=== PATIENT | female | born 1980 | race Hispanic/Latino ===

== ENCOUNTER 2019-05-16 05:18 | Inpatient (IN) ==
[2019-05-12 10:14] LABS: BASO# 0.02 X1000 (0.0-0.2); BASO% 0.3 % (0.0-0.8); EOS# 0.11 X1000 (0.0-0.7); EOS% 1.6 % (0.0-10.0); HEMATOCRIT 42.7 % (37.0-47.0); HEMOGLOBIN 14.8 g/dL (12.0-16.0); LYMPH# 2.41 X1000 (1.2-3.4); MCH 28.6 PG (27-31); MCHC 34.7 g/dL (33-37); MCV 82.4 FL (81-99); MONO# 0.49 X1000 (0.11-0.59); MONO% 6.9 % (1.7-9.3); NEUT# 4.05 X1000 (1.4-6.5); NEUT% 57.2 % (42.2-75.2); PLT 311 X1000 (130-400); RBC 5.18 XMIL (4.2-5.4); RDW 13.3 % (11.5-14.5); WBC 7.08 X1000 (4.8-10.8)
--- NOTE | 2019-05-12 10:25 | EKG Report ---
Test Performed on : 05/12/2019 09:40:21 AM Test Reason : PAT Blood Pressure : / mmHG Vent. Rate : 075 BPM Atrial Rate : 075 BPM P-R Int : 162 ms QRS Dur : 088 ms QT Int : 384 ms P-R-T Axes : 023 026 021 degrees QTc Int : 428 ms Normal sinus rhythm. Normal ECG No previous ECGs available Confirmed by Cate ANDERSON, David Leyva ([id number]) on 05/12/2019 5:06:37 PM
[2019-05-12 10:44] LABS: AGAP 15; BUN 9 mg/dL (8-22); CALCIUM 9.6 mg/dL (8.8-10.2); CHLORIDE 99 mmol/L (98-107); COSMO 285; CREATININE 0.5 mg/dL (0.5-0.9); ESTIMATED GFR > 60; GLUCOSE 331 mg/dL (70-104); POTASSIUM 4.1 mmol/L (3.5-5.1); SODIUM 137 mmol/L (136-145); TCO2 23 mmol/L (25-35)
[2019-05-16] MEDS ORDERED: KEFZOL 1 GM/D5W 2 GM/100 ML IVPB ONE (05:39)
[2019-05-16] MEDS ORDERED: LR 1,000 ML ONE (05:39)
[2019-05-16] MEDS ORDERED: DIPRIVAN 1% ONE (06:32)
[2019-05-16] MEDS ORDERED: MARCAINE 0.25% PF/EPI 1:200,000 ONE (06:42)
[2019-05-16] MEDS ORDERED: REGLAN ONE (06:56)
[2019-05-16] MEDS ORDERED: PEPCID ONE (06:57)
[2019-05-16] MEDS ORDERED: DILAUDID ONE (07:57)
[2019-05-16] MEDS ORDERED: ZOFRAN ONE (07:58)
[2019-05-16] MEDS ORDERED: OFIRMEV 1000 MG/ISOTONIC SOLN 1,000 MG/100 ML BOTTLE ONE (07:58)
[2019-05-16] MEDS ORDERED: NS 1,000 ML ONE (09:15)
[2019-05-16] MEDS ORDERED: ZOFRAN IV PRN (11:00)
[2019-05-16] MEDS: NORCO-10 PO PRN ×3 (11:08→22:57)
[2019-05-16] MEDS: NS 1,000 ML IV SCH (11:09)
--- NOTE | 2019-05-16 14:23 | OPERATIVE NOTE ---
PROCEDURE DATE: 05/16/2019 PREOPERATIVE DIAGNOSIS: Recurrent incarcerated incisional ventral hernia. POSTOPERATIVE DIAGNOSIS: Recurrent incarcerated incisional ventral hernia. PROCEDURE: Open repair of recurrent incarcerated incisional ventral hernia with bilateral component separation with placement of mesh (Bard Phasix 20 x 20 cm mesh). SURGEON: Raz Ruvalcaba MD. FREIGHT ROUTER: Dr. Duran. Dr. Duran assisted with the entirety of the case. His presence was crucial to completion of the case. ANESTHESIA: General endotracheal. OPERATIVE FINDINGS: Defect was 10 cm x 11 cm. COMPLICATIONS: None at the time of this dictation. ESTIMATED BLOOD LOSS: 50 mL. SPECIMEN REMOVED: Hernia sac. DRAINS: 19-Serbian. BRIEF HISTORY: A 38-year-old female who had a previous lower midline incision, had developed a hernia they had previously repaired because there was mesh in her abdomen. It was felt that she would benefit from a component separation. The risks, benefits, and alternatives were discussed. We did discuss with her CeDAR score of 39% complication rate. She was aware. She wanted to proceed. PROCEDURE: After informed consent was obtained, patient brought to the operative theater, transferred to the operating table and placed in supine position. General endotracheal anesthesia was then performed without complication. A formal time-out was then performed confirming patient, date, procedure. All in agreement. At that time, attention was given to the abdomen. We made a standard midline incision. We started superior to her umbilicus and carried all way down through her previous incision. We were able to come down to the fascia. We did notice that she had a small umbilical hernia but we incorporated this into the larger hernia. We found the hernia sac, entered into the hernia sac and then dissected the hernia sac off circumferentially to free up the fascia. The hernia defect measured 10 cm x 11 cm. We then created bilateral flaps laterally while preserving the rattlesnake farmer veins and vasculature. We did this by the anterior fascia off of the subcutaneous tissue, creating a myocutaneous flap bilaterally, preserving the innervation and the vasculature to it bilaterally. This eased the tension and brought the fascia to the midline more readily. We did this bilaterally all the way up to and above the level of the umbilicus and inferiorly to the anterosuperior iliac spine. Once we had done this, we felt that the midline was able to close primarily. We closed it with interrupted #1 Vicryl with good results. There was some bulge where her previous mesh was in the lower aspect, but the mesh was too well incorporated to remove without causing further injury. We then placed the Phasix mesh. It was originally 20 x 25 but we tailored it to be 20 x 20. We secured it in place in 8 places circumferentially with good coverage. We then closed the skin in layers using 3-0 Vicryl and all for the skin. We did place a drain tunneled from the lateral aspect in the right lower quadrant to above the mesh given the size of her defect and the cavity created. We secured it with a drain stitch and the patient had a sterile dressing applied and an abdominal binder. We will watch her overnight given the size. cc: Raz Ruvalcaba MD
[2019-05-16] MEDS: PERIDEX MT SCH (20:45)
[2019-05-16] MEDS: GLUCOPHAGE PO SCH (20:46)
[2019-05-17] MEDS: NORCO-10 PO PRN ×4 (06:23→23:39)
[2019-05-17] MEDS: COZAAR PO SCH (08:35)
[2019-05-17] MEDS: AMARYL PO SCH (08:35)
[2019-05-17] MEDS: PERIDEX MT SCH ×2 (08:36→21:10)
[2019-05-17] MEDS: GLUCOPHAGE PO SCH ×2 (08:36→21:10)
--- NOTE | 2019-05-17 10:55 | PROGRESS NOTE ---
DATE: 05/17/2019 SUBJECTIVE: Ms. Long is a 38-year-old [place] female who is now postop day 1 from a component separation with ventral hernia closure per Dr. Ruvalcaba. She has a VLADIMIR drain in place, her wounds are dressed and she has an abdominal binder. Her serum glucoses have been elevated. She is awake. She is sitting up in bed and she has had some clear liquids. OBJECTIVE: Her heart rate is 84, blood pressure 131/79, O2 saturation 99%. Her T-max is 99.3 degrees. She is not on any antibiotics. We have restarted her metformin and glimepiride. She is also on a sliding scale. PLAN: We will try to increase her activity and get better serum glucose control. We will leave her abdominal binder in place, and she is on a diabetic diet. We will leave her VLADIMIR drain in place. cc: MD Raz Morales MD
[2019-05-18] MEDS: NS 1,000 ML IV SCH ×2 (04:53→08:18)
[2019-05-18] MEDS: COZAAR PO SCH (08:12)
[2019-05-18] MEDS: NORCO-10 PO PRN ×3 (08:12→21:02)
[2019-05-18] MEDS: PERIDEX MT SCH ×2 (08:13→20:58)
[2019-05-18] MEDS: AMARYL PO SCH (08:13)
[2019-05-18] MEDS: GLUCOPHAGE PO SCH ×2 (08:13→20:58)
--- NOTE | 2019-05-18 12:43 | PROGRESS NOTE ---
DATE: 05/18/2019 SUBJECTIVE: Ms. Powell is status post component separation and closure of ventral hernia per Dr. Ruvalcaba. Her wounds remained dressed. She has a drain in place with mostly serosanguineous drainage. She is sore, but she has been good about getting up out of bed. She is tolerating a regular diet. Her sugars are becoming better controlled. OBJECTIVE: Vital Signs: Her heart rate is 84, blood pressure 144/80, O2 saturation 98%. She is afebrile. PLAN: We will leave her abdominal binder and wound dressings in place. We will leave her drain in place at this time. She is on no antibiotics. cc: MD Raz Morales MD
[2019-05-18] MEDS: HUMALOG SUBQ SCH (21:03)
[2019-05-19] MEDS: NORCO-10 PO PRN (06:34)
[2019-05-19] MEDS: HUMALOG SUBQ SCH (06:40)
--- NOTE | 2019-05-19 07:02 | GENERAL SURGERY PROGRESS NOTE ---
DATE: 05/19/2019 Patient seems to be doing okay. She has been hemodynamically stable. The main reason the keep her in the hospital has been pain control and glucose control. At this point, her pain seems to be better controlled. She is wearing her abdominal binder. Her blood sugars have been running over 200s but have been relatively stable in this sense. She is on her home regimen. From a surgical point of view, we will see how she does after breakfast and potentially discharge her. cc: Raz Ruvalcaba MD
[2019-05-19 08:02] VITALS: BP 136/87
[2019-05-19] MEDS: PERIDEX MT SCH (11:09)
[2019-05-19] MEDS: GLUCOPHAGE PO SCH (11:09)
[2019-05-19] MEDS: COZAAR PO SCH (11:09)
[2019-05-19] MEDS: AMARYL PO SCH (11:09)
--- NOTE | 2019-05-20 15:32 | DISCHARGE SUMMARY ---
ADMISSION DATE: 05/16/2019 DISCHARGE DATE: 05/19/2019 ADMITTING DIAGNOSIS: Large incisional recurrent ventral hernia. DISCHARGE DIAGNOSIS: Status post bilateral component separation with repair of ventral hernia. ADMITTING PHYSICIAN: Dr. Raz Ruvalcaba MD CONSULTATIONS: None. PROCEDURES: On 05/16/2019, patient underwent open repair of recurrent incarcerated incisional ventral hernia with bilateral component separation with placement of mesh. BRIEF HISTORY AND COURSE OF STAY: The patient is a 38-year-old female who was admitted underwent previously described procedure which she tolerated well. Her postoperative course was mainly dictated by her pain control and her diabetes. It took 2 days until we get her pain controlled and her diabetes under control. On postop day 3, is was felt that she would be safe to be discharged home. All arrangements were made. On the day of discharge, she was up and ambulating tolerating p.o. pain medicine. Blood sugar better controlled. Wearing her abdominal binder with a VLADIMIR drain in place. All arrangements were made. DISCHARGE CONDITION: Stable. DISPOSITION: Home. DISCHARGE MEDICATIONS: She was given prescription for pain medicine. DISCHARGE INSTRUCTIONS: Patient told to follow up with Dr. Ruvalcaba in 1 to 2 weeks. She is also told to wear her binder and record VLADIMIR drain output. cc: Raz Ruvalcaba MD
== END 2019-05-19 12:14 | disposition home or self-care (01) | DRG 355 ==
LOC: OR 05:18 → 4N 10:51 → INTOOBSV 10:51 → OBSVTOIN 10:51
PROVIDERS: ADMIT Surgery; ATTEND Surgery
CPT/HCPCS: 80048; 81025; 82948; 85025; 88302; 93005; 93010; 94761; 94799; A9270; C1781; J0131; J0690; J1170; J1815; J2405; J2765; J7030; J7120; S0028; XXXXX